=== PATIENT | female | born 1955 | race Caucasian/White ===

== ENCOUNTER 2018-02-21 01:29 | Emergency (ER) | payer OTHER ==
[~2018-02-21] VITALS: Ht 167.6 cm; Wt 65.8 kg
[~2018-02-21 01:29] MED LIST: ASPIRIN EC81 M1; BENAZEPRIL-HCT1 EAC1; BRILINTA90 MG; CIPRO XR 500 M500 MG; CLOPIDOGREL75 MG PO; D-AMPHETAMINE SALT; FLEXERIL PO; HYDROCODON-ACE1 EAC4; HYDROCODON-ACE1 EAC7 PO; LOPRESSOR100 MG; NAPROSYN500 MG PO; NORFLEX100 MG PO; PERCOCET 5-3251 EACH PO; SIMVASTATIN40 MG
[2018-02-21 02:33] VITALS: BP 151/77
== END 2018-02-21 02:34 | disposition home or self-care (01) ==
LOC: M.ERS 01:29
DX: S99.821A Other specified injuries of right foot, initial encounter (principal); I21.9 Acute myocardial infarction, unspecified; Z90.49 Acquired absence of other specified parts of digestive tract; Z90.710 Acquired absence of both cervix and uterus; Z95.5 Presence of coronary angioplasty implant and graft; F17.210 Nicotine dependence, cigarettes, uncomplicated; W18.39XA Other fall on same level, initial encounter; Y93.89 Activity, other specified; Y92.89 Other specified places as the place of occurrence of the external cause; Y99.8 Other external cause status

== ENCOUNTER 2019-11-20 17:26 | Inpatient (IN) | payer OTHER ==
[~2019-11-20] VITALS: Ht 162.6 cm; Wt 81.0 kg
[~2019-11-20 17:26] MED LIST changes: -ASPIRIN EC81 M1; +ASPIRIN EC81 M1 PO; -SIMVASTATIN40 MG; +SIMVASTATIN40 MG PO
[2019-11-20 17:38] VITALS: BP 180/112
[2019-11-20 18:22] LABS: ABSOLUTE BASOPHILS 0.1 thou/uL (0.0-0.2); ABSOLUTE LYMPHOCYTES 2.2 thou/uL (0.8-5.3); ABSOLUTE MONOCYTES 1.3 thou/uL (0.0-1.2); ABSOLUTE NEUTROPHILS 14.3 thou/uL (1.6-8.1); BASOPHILS 0.5 %; EOSINOPHILS 0.1 %; HEMOGLOBIN 13.2 gm/dL (12.0-15.0); LYMPHOCYTES 12.5 %; MCHC 34.6 g/dL (28.0-37.0); MCV 92.5 fL (80.0-100.0); MONOCYTES 7.2 %; NUCLEATED RBCS 0 /100WBC; PLATELET COUNT* 409 thou/uL (150-400); POLYS 79.7 %; RBC 4.11 mil/uL (4.20-5.00); RDW-CV 13.5 % (10.5-14.5); WBC 17.9 thou/uL (4.0-11.0)
[2019-11-20 18:23] LABS: URINE BILIRUBIN NEGATIVE (Negative); URINE BLOOD 1+ (Negative); URINE COLOR YELLOW; URINE GLUCOSE-RANDOM NEGATIVE (Negative); URINE KETONES NEGATIVE (Negative); URINE LEUKOCYTES-REFLEX NEGATIVE (Negative); URINE NITRITE-REFLEX NEGATIVE (Negative); URINE PROTEIN 3+ (Negative); URINE SPECIFIC GRAVITY 1.025 (1.005-1.030); URINE UROBILINOGEN 0.2 E.U./dl (0.2-1.0)
[2019-11-20 18:26] LABS: URINE CLARITY HAZY
[2019-11-20 18:30] LABS: CALCIUM 9.4 mg/dL (8.5-10.1); CREATININE 1.5 mg/dL (0.6-1.3); POTASSIUM 3.6 mmol/L (3.5-5.1)
[2019-11-20 18:35] LABS: ALBUMIN 3.4 g/dL (3.4-5.0); TOTAL BILIRUBIN 0.6 mg/dL (<0.1-1.0); TOTAL PROTEIN 7.9 g/dL (6.4-8.2)
[2019-11-20 18:39] LABS: SQUAMOUS >10 Many /LPF (0-3)
[2019-11-20 18:40] LABS: BACTERIA-REFLEX >30 Many /HPF (None Seen); CASTS None Seen /LPF (None Seen); CRYSTALS None Seen /LPF (None Seen); URINE RBC 0-2 Rare /HPF (0-2); URINE WBC-REFLEX >25 Many /HPF (0-5)
[2019-11-20 21:52] VITALS: BP 167/86
[2019-11-20 21:57] LABS: INFLUENZA A ANTIGEN Negative (Negative); INFLUENZA B ANTIGEN Negative (Negative)
[2019-11-20 22:15] VITALS: BP 176/75
[2019-11-21] VITALS (8 sets, daily range): BP systolic 134–180; BP diastolic 65–87
--- NOTE | 2019-11-21 10:21 | EKG ---
[place] [address] ELECTROCARDIOGRAM REPORT Name: CASTRO CLEANING Room: [address] IN [facility]#: [id number] Admission: 11/20/19 Attend Phys: Pablito Gutierrez, Discharge: Date of : 51 Date of Service: 11/20/19 1819 Report #: [id number] THIS REPORT FOR: //name// [facility] ED Test Date: 2019-11-20 Test Time: 18:19:06 Pat Name: CASTRO CLEANING Department: Room: [facility] Gender: F Hand I Thermal Cutter: JUDE : 1955 Requested By: Costa Flores Order Number: [id number] MD: Bryan Jay Measurements Intervals [place] Rate: 70 P: 76 TN: 157 QRS: 52 QRSD: 93 T: 82 QT: 477 QTc: 515 Interpretive Statements Sinus rhythm Probable left atrial enlargement Borderline T wave abnormalities Prolonged QT interval Baseline wander in lead(s) V6 Compared to ECG 08/30/2012 09:02:43 T-wave abnormality now present Prolonged QT interval now present Electronically Signed On 11-21-2019 10:20:14 CAR BRACER by Bryan Jay [email or web address] <ELECTRONICALLY SIGNED> By: Bryan Jay MD, [facility] 11/21/19 1020 18 18 Bryan Jay MD, [facility] /EPI
[2019-11-21 13:14] LABS: CALCIUM 8.8 mg/dL (8.5-10.1); CREATININE 1.3 mg/dL (0.6-1.3); MAGNESIUM 1.6 mg/dL (1.8-2.4); POTASSIUM 3.6 mmol/L (3.5-5.1)
[2019-11-22 00:30] VITALS: BP 187/88
[2019-11-22 04:41] VITALS: BP 170/74
[2019-11-22 05:17] LABS: CALCIUM 8.7 mg/dL (8.5-10.1); CREATININE 1.2 mg/dL (0.6-1.3); MAGNESIUM 1.4 mg/dL (1.8-2.4); POTASSIUM 3.2 mmol/L (3.5-5.1)
[2019-11-22 12:00] VITALS: BP 185/90
[2019-11-22 16:00] VITALS: BP 171/78
[2019-11-22 20:10] VITALS: BP 167/73
[2019-11-23 00:23] VITALS: BP 145/49
[2019-11-23 04:30] VITALS: BP 160/69
[2019-11-23 05:27] LABS: HEMATOCRIT 32.6 % (37.0-47.0); MCH 31.4 pg (26.0-34.0); MCHC 33.6 g/dL (28.0-37.0); MCV 93.6 fL (80.0-100.0); MPV 7.2 fl. (7.2-11.1); RBC 3.48 mil/uL (4.20-5.00); RDW-CV 13.4 % (10.5-14.5); WBC 11.2 thou/uL (4.0-11.0)
[2019-11-23 05:40] LABS: HEMOGLOBIN 10.9 gm/dL (12.0-15.0)
[2019-11-23 05:57] LABS: CALCIUM 8.3 mg/dL (8.5-10.1); CREATININE 1.3 mg/dL (0.6-1.3); MAGNESIUM 1.7 mg/dL (1.8-2.4); POTASSIUM 3.8 mmol/L (3.5-5.1)
[2019-11-23 08:00] VITALS: BP 159/72
[2019-11-23] MEDS ORDERED: CIPRO500 MG PO (09:31)
[2019-11-23] MEDS ORDERED: PHENERGAN 25 MG25 M1 PO (09:32)
[2019-11-23 11:21] VITALS: BP 185/89
[2019-11-23 16:45] VITALS: BP 190/96
[2019-11-23 19:50] VITALS: BP 175/88
[2019-11-24] VITALS: BP 202/103
[2019-11-24 04:00] VITALS: BP 170/69
[2019-11-24 10:00] VITALS: BP 176/82
[2019-11-24 11:34] VITALS: BP 178/81
[2019-11-24 16:06] VITALS: BP 177/85
[2019-11-24 19:50] VITALS: BP 159/78
[2019-11-25 00:38] VITALS: BP 171/84
[2019-11-25 04:00] VITALS: BP 177/73
[2019-11-25 08:30] VITALS: BP 166/96
[2019-11-25 10:02] LABS: ABSOLUTE EOSINOPHILS 0.1 thou/uL (0.0-0.7); ABSOLUTE MONOCYTES 0.8 thou/uL (0.0-1.2); ABSOLUTE NEUTROPHILS 7.9 thou/uL (1.6-8.1); BASOPHILS 0.1 %; EOSINOPHILS 0.5 %; HEMATOCRIT 36.6 % (37.0-47.0); HEMOGLOBIN 12.7 gm/dL (12.0-15.0); LYMPHOCYTES 18.4 %; MCH 31.9 pg (26.0-34.0); MCHC 34.7 g/dL (28.0-37.0); MCV 91.7 fL (80.0-100.0); MONOCYTES 7.3 %; MPV 7.1 fl. (7.2-11.1); NUCLEATED RBCS 0 /100WBC; PLATELET COUNT* 372 thou/uL (150-400); POLYS 73.7 %; RBC 3.99 mil/uL (4.20-5.00); RDW-CV 13.4 % (10.5-14.5); WBC 10.8 thou/uL (4.0-11.0)
[2019-11-25 10:14] LABS: ALBUMIN 2.9 g/dL (3.4-5.0); CALCIUM 8.6 mg/dL (8.5-10.1); CREATININE 1.4 mg/dL (0.6-1.3); POTASSIUM 3.8 mmol/L (3.5-5.1); TOTAL BILIRUBIN 0.6 mg/dL (<0.1-1.0); TOTAL PROTEIN 6.8 g/dL (6.4-8.2)
[2019-11-25 12:09] VITALS: BP 123/75
[2019-11-25 13:45] VITALS: BP 123/75
== END 2019-11-25 15:20 | disposition home or self-care (01) | DRG 689 ==
LOC: M.ERS 17:26 → M.2W 21:23 → M.TBA-ER 21:23 → M.2W 22:05
PROVIDERS: Internal Medicine; Physician Assistant; ADMIT Internal Medicine
DX: N30.91 Cystitis, unspecified with hematuria (principal); N17.0 Acute kidney failure with tubular necrosis; R65.10 Systemic inflammatory response syndrome (SIRS) of non-infectious origin without acute organ dysfunction; F11.20 Opioid dependence, uncomplicated; I16.1 Hypertensive emergency; A08.4 Viral intestinal infection, unspecified; E86.9 Volume depletion, unspecified; K57.90 Diverticulosis of intestine, part unspecified, without perforation or abscess without bleeding; B96.89 Other specified bacterial agents as the cause of diseases classified elsewhere; G89.29 Other chronic pain; I25.10 Atherosclerotic heart disease of native coronary artery without angina pectoris; Z90.49 Acquired absence of other specified parts of digestive tract; Z90.710 Acquired absence of both cervix and uterus; I25.2 Old myocardial infarction; Z95.5 Presence of coronary angioplasty implant and graft; Z79.899 Other long term (current) drug therapy; Z79.82 Long term (current) use of aspirin; Z87.891 Personal history of nicotine dependence; Z86.010 Personal history of colon polyps

== ENCOUNTER 2021-02-04 15:47 | Inpatient (IN) | payer OTHER ==
[~2021-02-04] VITALS: Ht 165.1 cm; Wt 79.5 kg
[~2021-02-04 15:47] MED LIST changes: +CIPRO500 MG PO; -HYDROCODON-ACE1 EAC4; +HYDROCODON-ACE1 EAC5 PO; +PHENERGAN 25 MG25 M1 PO
[2021-02-04 15:55] VITALS: BP 161/93
[2021-02-04] MEDS ORDERED: MEDROLDOSEPACK PO (16:00)
[2021-02-04 16:51] LABS: ABSOLUTE BASOPHILS 0.1 thou/uL (0.0-0.2); ABSOLUTE EOSINOPHILS 0.1 thou/uL (0.0-0.7); ABSOLUTE LYMPHOCYTES 4.2 thou/uL (0.8-5.3); ABSOLUTE MONOCYTES 1.4 thou/uL (0.0-1.2); ABSOLUTE NEUTROPHILS 8.5 thou/uL (1.6-8.1); BASOPHILS 0.5 %; EOSINOPHILS 0.8 %; HEMATOCRIT 32.1 % (37.0-47.0); HEMOGLOBIN 11.1 gm/dL (12.0-15.0); LYMPHOCYTES 29.4 %; MCH 32.4 pg (26.0-34.0); MCHC 34.7 g/dL (28.0-37.0); MCV 93.3 fL (80.0-100.0); MONOCYTES 9.9 %; MPV 6.9 fl. (7.2-11.1); NUCLEATED RBCS 0 /100WBC; PLATELET COUNT* 396 thou/uL (150-400); POLYS 59.4 %; RBC 3.44 mil/uL (4.20-5.00); RDW-CV 12.7 % (10.5-14.5); WBC 14.3 thou/uL (4.0-11.0)
[2021-02-04 16:59] LABS: CALCIUM 9.2 mg/dL (8.5-10.1); CREATININE 2.2 mg/dL (0.6-1.3); POTASSIUM 3.8 mmol/L (3.5-5.1)
[2021-02-04 17:09] LABS: ALBUMIN 3.2 g/dL (3.4-5.0); TOTAL BILIRUBIN 0.3 mg/dL (<0.1-1.0); TOTAL PROTEIN 7.1 g/dL (6.4-8.2)
[2021-02-04 17:56] LABS: URINE BILIRUBIN NEGATIVE (Negative); URINE BLOOD NEGATIVE (Negative); URINE CLARITY CLEAR; URINE COLOR YELLOW; URINE GLUCOSE-RANDOM NEGATIVE (Negative); URINE KETONES NEGATIVE (Negative); URINE LEUKOCYTES-REFLEX NEGATIVE (Negative); URINE NITRITE-REFLEX NEGATIVE (Negative); URINE PROTEIN 2+ (Negative); URINE SPECIFIC GRAVITY 1.025 (1.005-1.030); URINE UROBILINOGEN 0.2 E.U./dl (0.2-1.0)
[2021-02-04 18:10] LABS: CRYSTALS None Seen /LPF (None Seen); HYALINE CASTS 0-3 Few /LPF (None Seen); SQUAMOUS >10 Many /LPF (0-3)
[2021-02-04 18:11] LABS: MUCUS 0-3 Light strn/LPF (None Seen)
[2021-02-04 18:13] LABS: BACTERIA-REFLEX 1-9 Few /HPF (None Seen); URINE RBC None Seen /HPF (0-2); URINE WBC-REFLEX 0-5 Rare /HPF (0-5)
[2021-02-04 20:30] VITALS: BP 137/56
[2021-02-04 21:09] VITALS: BP 144/70
[2021-02-05] VITALS (7 sets, daily range): BP systolic 150–220; BP diastolic 73–87
[2021-02-05 09:46] LABS: ABSOLUTE LYMPHOCYTES 2.6 thou/uL (0.8-5.3); ABSOLUTE MONOCYTES 0.9 thou/uL (0.0-1.2); ABSOLUTE NEUTROPHILS 9.4 thou/uL (1.6-8.1); BASOPHILS 0.4 %; EOSINOPHILS 0.2 %; HEMATOCRIT 31.4 % (37.0-47.0); HEMOGLOBIN 10.5 gm/dL (12.0-15.0); LYMPHOCYTES 20.2 %; MCH 31.1 pg (26.0-34.0); MCHC 33.5 g/dL (28.0-37.0); MCV 92.9 fL (80.0-100.0); MONOCYTES 6.8 %; MPV 6.5 fl. (7.2-11.1); NUCLEATED RBCS 0 /100WBC; PLATELET COUNT* 365 thou/uL (150-400); POLYS 72.4 %; RBC 3.38 mil/uL (4.20-5.00); RDW-CV 12.7 % (10.5-14.5)
[2021-02-05 09:58] LABS: ALBUMIN 2.8 g/dL (3.4-5.0); CALCIUM 8.6 mg/dL (8.5-10.1); CREATININE 1.9 mg/dL (0.6-1.3); POTASSIUM 4.7 mmol/L (3.5-5.1); TOTAL BILIRUBIN 0.3 mg/dL (<0.1-1.0); TOTAL PROTEIN 6.5 g/dL (6.4-8.2)
--- NOTE | 2021-02-06 15:19 | EKG ---
[place] [address] ELECTROCARDIOGRAM REPORT Name: FELIPE CLEANINGAN Wilfredo Room: [address] IN [facility]#: [id number] Admission: 02/04/21 Attend Phys: Jodie Plasencia, Discharge: 02/05/21 Date of : 51 Date of Service: 02/04/21 1553 Report #: [id number] THIS REPORT FOR: //name// [facility] ED Test Date: 2021-02-04 Test Time: 15:53:00 Pat Name: CASTRO CLEANING Department: Room: [facility] Gender: F Rockboard Lather: GAUTAM : 1955 Requested By: Johanne Locke Order Number: [id number] MD: Bryan Jay Measurements Intervals [place] Rate: 64 P: 75 [place]: 172 QRS: 42 QRSD: 97 T: 62 QT: 474 QTc: 489 Interpretive Statements Sinus rhythm Left atrial enlargement Nonspecific T abnormalities, lateral leads Borderline prolonged QT interval Compared to ECG 11/20/2019 18:19:06 No significant changes Electronically Signed On 02-06-2021 15:18:56 CDT by Bryan Jay [email or web address] <ELECTRONICALLY SIGNED> By: Bryan Jay MD, [facility] 02/06/21 1518 1553 1553 Bryan Jay MD, FAC /EPI
== END 2021-02-05 14:15 | disposition home or self-care (01) | DRG 303 ==
LOC: M.ERS 15:47 → M.TBA-ER 17:54 → M.2W 20:30
PROVIDERS: Internal Medicine; Nurse Practitioner Family; ADMIT Internal Medicine; ATTEND Internal Medicine
DX: I25.119 Atherosclerotic heart disease of native coronary artery with unspecified angina pectoris (principal); N18.4 Chronic kidney disease, stage 4 (severe); N17.9 Acute kidney failure, unspecified; K57.90 Diverticulosis of intestine, part unspecified, without perforation or abscess without bleeding; F12.90 Cannabis use, unspecified, uncomplicated; D64.9 Anemia, unspecified; G89.29 Other chronic pain; Z20.822 Contact with and (suspected) exposure to COVID-19; I25.2 Old myocardial infarction; Z95.5 Presence of coronary angioplasty implant and graft; Z90.710 Acquired absence of both cervix and uterus; Z90.49 Acquired absence of other specified parts of digestive tract; Z79.82 Long term (current) use of aspirin; Z79.899 Other long term (current) drug therapy

== ENCOUNTER → 2021-02-13 | Outpatient (CLI) | payer OTHER ==
[~2021-02-13] MED LIST changes: +ATORVASTATIN CA20 MG PO; +BENAZEPRIL 10 M10 MG PO; +EFFIENT10 MG PO; +IMDUR 30 MG TAB30 M1 PO; +LOPRESSOR100 M1 PO; +LOTENSIN HCT 11 EAC1 PO; +MEDROLDOSEPACK PO; +NITROSTAT0.4 M1 SUBLING
--- NOTE | 2021-02-13 16:43 | CARDNUC ---
[place] [address] CARDIAC NUCLEAR IMAGING REPORT Name: CASTRO CLEANING Room: [facility]#: [id number] Admission: 02/13/21 Attend Phys: Santosh Valdez, Discharge: Date of : 51 Date of Service: 02/13/21 1643 Report #: [id number] THIS REPORT FOR: cc: Chandler Patterson MD, Bruce D. MD Park, Jin S. MD ~ APPROVED REPORT Imaging Protocol: Rest Tc-99m/Stress Tc-99m 1 day Study performed: 02/13/2021 14:29:21 Indication: Chest pressure with nausea, dyspnea, lightheadedness/dizziness. Patient Location: Out-Patient Stress Tech: Tere Hall Stress Nurse: Martha Springer Tech:MONE Del Angel Ht: 5 ft 5 in Wt: 170 lbs BSA: 1.85 m2 BMI: 28.28 Medical History Medical History: Chest pressure with nausea, lightheadedness/dizziness, dyspnea, chronic narcotic medication use, CAD s/p NE, CAD s/p stent, ARF, ATN, hypertensive urgency, falls, HX closed head injury, HTN, Hyperlipidemia, smokes tobacco and marijuana, right ankle injury, bilateral hip and knee pain, FHX CAD. Medications: ASA 81 mg, Benazepril-HCTZ, Metoprolol tartrate, Simvastatin. Allergies: No known drug allergies Cardiac Risk Factors: Age, Current Smoker, FHX of CAD, HTN, Hyperlipidemia, SOB, ARF, HX hypertensive urgency. Previous Cardiac Procedures: Myocardial infarction, PCI. Pretest Chest Pain Characteristics: No chest pain Exercise History: Sedentary Physical Disabilities: right ankle injury with pain, bilateral hip and knee pain, HX closed head injury, unstable gait, fall history. Meds Held (24 hrs): Metoprolol tartrate, Benazepril-HCTZ, ASA 81 mg. Resting Data Rest SPECT myocardial perfusion imaging [place] [address] CARDIAC NUCLEAR IMAGING REPORT Name: CASTRO CLEANING Room: [facility]#: [id number] Admission: 02/13/21 Attend Phys: Santosh Valdez, Discharge: Date of : 51 Date of Service: 02/13/21 1643 Report #: [id number] position 30 minutes following the intravenous injection of 9.6 mCi of Tc-99m Sestamibi. Time of rest injection: 1320 Date: 02/13/2021 The images were gated to evaluate regional wall motion and calculate left ventricular ejection fraction. Administration Route: IV Administration Site: Right Arm Pharmacologic Stress Pharmacologic stress test was performed by injecting Regadenoson 0.4 mg IV push over 10-15 seconds immediately followed by the intravenous injection of 35.2 mCi of Tc-99m Sestamibi. Time of stress injection: 1440 Date: 02/13/2021 Administration Route: IV Administration Site: Right Arm Gated Stress SPECT was performed 40 minutes after stress injection. The images were gated to evaluate regional wall motion and calculate left ventricular ejection fraction. Stress only was performed in the Supine position. Stress Test Details Stress Test: Pharmacologic stress testing performed using 0.4 mg of regadenoson per 5 mL given IV over 10 seconds. Reason for pharmacologic stress test: right ankle injury with pain, bilateral hip and knee pain, HX closed head injury, unstable gait, fall history.. HR Max Heart Rate (APMHR): 153 bpm Resting HR: 78 bpm Target HR (85% APMHR): 130 bpm Max HR Achieved: 106 bpm % of APMHR: 69 Recovery HR: 96 bpm BP Resting BP: 189/106 mmHg Max BP: 165/81 mmHg Recovery BP: 176/86 mmHg ECG Resting ECG: Sinus Rhythm, nonspecific ST-T abnormalities Stress ECG: Sinus Rhythm, nonspecific ST-T abnormalities ST Change: Non-ischemic Clinical Reason for Termination: [place] [address] CARDIAC NUCLEAR IMAGING REPORT Name: CASTRO CLEANING Room: [facility]#: [id number] Admission: 02/13/21 Attend Phys: Santosh Valdez, Discharge: Date of : 51 Date of Service: 02/13/21 1643 Report #: [id number] Stress Symptoms: Dyspnea, nausea, headache. Exercise duration: 00 min 00 sec Exercise capacity: 1.00 METs Nurse Comments A 65 year old female presented for a sitting Lexiscan. Test tolerated. Recovery unremarkable. Patient was stable and stated she felt better when escorted via wheelchair to Nuclear Medicine for imaging. While patient was waiting for Nuc Med imaging, she experienced N/V. This nurse, per Dr. Garcia orders, pushed 4 mg IV Zofran to help with nausea , provided wet wash cloth to forehead and ice chips to chew on for hydration. Patient stated she felt better. Study Quality Study: Good Study Data Post stress, the left ventricular ejection was 57%.. SSS: 12 SRS: 10 SDS: 1 TID = 1.05. Perfusion There is a medium area of moderately reduced uptake in the mid and apical segment of the anteroseptal wall which is seen on the stress images and improves on the resting images. This area thickens and is most consistent with mixed infarct and ischemia. Wall Motion Mildly decreased left ventricular systolic function. Nuclear Conclusion ECG Findings: negative for ischemia Clinical Findings: non-diagnostic Nuclear Findings: positive for mixed infarct and ischemia Exercise Capacity: not assessed Left Ventricular Function: abnormal This study reveals a nontransmural infarct in the mid to apical anteroseptum with mild maya-infarct ischemia. [address] [address] CARDIAC NUCLEAR IMAGING REPORT Name: CASTRO CLEANING Room: [facility]#: [id number] Admission: 02/13/21 Attend Phys: Santosh Valdez, Discharge: Date of : 51 Date of Service: 02/13/21 1643 Report #: [id number] There is low normal LV systolic function with hypokinesis of the distal inferoapical segment. <ELECTRONICALLY SIGNED> By: Terrence Hernández MD 02/13/211642 42 42 Terrence Hernández MD /INF
== END ==
LOC: M.NUC 12:40
PROVIDERS: ATTEND Internal Medicine Cardiovascular Disease
DX: I21.4 Non-ST elevation (NSTEMI) myocardial infarction (principal); R06.00 Dyspnea, unspecified; R51.9 Headache, unspecified; R11.0 Nausea; I25.118 Atherosclerotic heart disease of native coronary artery with other forms of angina pectoris; I25.2 Old myocardial infarction; I10 Essential (primary) hypertension; E78.5 Hyperlipidemia, unspecified; F17.200 Nicotine dependence, unspecified, uncomplicated; Z95.5 Presence of coronary angioplasty implant and graft; Z79.899 Other long term (current) drug therapy

== ENCOUNTER 2021-03-08 10:25 | Observation (INO) | payer OTHER ==
[~2021-03-08] VITALS: Ht 165.1 cm; Wt 77.1 kg
[2021-03-08] VITALS (8 sets, daily range): BP systolic 130–140; BP diastolic 67–84
--- NOTE | ~2021-03-08 | H ---
[address] [address] HISTORY AND PHYSICAL Name: BLACKCASTRO Wilfredo Room: [address] Suzie MMistyRMisty#: [id number] Admission: 03/08/21 Attend Phys: Bryan Jay MD, Discharge: 03/09/21 Date of : 51 Report #: [id number] THIS REPORT FOR: cc: Chandler Patterson MD, Bruce D. MD [facility],Medical Records Staff ~ Please refer to the History and Physical performed in the physician's office. By: 1005Medical Records Staff [facility] /ISAAK
[~2021-03-08 10:25] MED LIST changes: -ATORVASTATIN CA20 MG PO; -EFFIENT10 MG PO
[2021-03-08 11:16] LABS: HEMATOCRIT 31.7 % (37.0-47.0); HEMOGLOBIN 10.9 gm/dL (12.0-15.0); MCH 31.6 pg (26.0-34.0); MCHC 34.5 g/dL (28.0-37.0); MCV 91.5 fL (80.0-100.0); MPV 7.3 fl. (7.2-11.1); RBC 3.47 mil/uL (4.20-5.00); RDW-CV 12.4 % (10.5-14.5); WBC 12.7 thou/uL (4.0-11.0)
[2021-03-08 11:24] LABS: ANION GAP 8 mmol/L (7-16); BUN 52 mg/dL (7-18); CALCIUM 8.9 mg/dL (8.5-10.1); CHLORIDE 99 mmol/L (98-107); CO2 26 mmol/L (21-32); CREATININE 2.3 mg/dL (0.6-1.3); GLUCOSE 98 mg/dL (70-99); POTASSIUM 4.7 mmol/L (3.5-5.1); SODIUM 133 mmol/L (136-145)
[2021-03-08 11:30] LABS: ALBUMIN 3.2 g/dL (3.4-5.0); ALKALINE PHOSPHATASE 179 U/L (46-116); CHOLESTEROL 174 mg/dL (<200); HDL CHOLESTEROL 40 mg/dL (>40); LDL CHOLESTEROL 92 mg/dL (<100); SGOT 20 U/L (15-37); SGPT 11 U/L (30-65); TC:HDL 4.4 Ratio (Not establshd); TOTAL BILIRUBIN 0.1 mg/dL (<0.1-1.0); TOTAL PROTEIN 7.4 g/dL (6.4-8.2); TRIGLYCERIDE 213 mg/dL (<150); VLDL 43 mg/dL (<40)
[2021-03-08 11:31] LABS: SERUM ASSESSMENT Clear
[2021-03-08 11:41] LABS: APTT 26.6 Seconds (25.0-31.3); INR 0.9; PROTIME 9.6 Seconds (9.20-11.50)
--- NOTE | 2021-03-08 14:20 | EKG ---
[place] [address] ELECTROCARDIOGRAM REPORT Name: CASTRO CLEANING Room: [address] M.R.#: [id number] Admission: 03/08/21 Attend Phys: Lidia Loza Discharge: Date of : 51 Date of Service: 03/08/21 1109 Report #: [id number] THIS REPORT FOR: //name// [facility] Test Date: 2021-03-08 Test Time: 11:09:35 Pat Name: CASTRO CLEANING Department: Room: [facility] Gender: F Asphalt Raker: ARLYN : 1955 Requested By: Bryan Jay Order Number: [id number] Reading MD: Bryan Jay Measurements Intervals [place] Rate: 60 P: 83 MA: 189 QRS: 18 QRSD: 98 T: 97 QT: 462 QTc: 462 Interpretive Statements Sinus rhythm Nonspecific T abnrm, anterolateral leads Minimal ST elevation, anterior leads Compared to ECG 02/04/2021 15:53:00 ST (T wave) deviation now present Atrial abnormality no longer present T-wave abnormality no longer present Electronically Signed On 03-08-2021 14:20:20 CDT by Bryan Jay [email or web address] <ELECTRONICALLY SIGNED> By: Bryan Jay MD, [facility] 03/08/21 1420 1109 1109 Bryan Jay MD, [facility] /EPI
--- NOTE | 2021-03-08 14:21 | EKG ---
[place] [address] ELECTROCARDIOGRAM REPORT Name: CASTRO CLEANING Room: [address] M.R.#: [id number] Admission: 03/08/21 Attend Phys: Lidia Loza Discharge: Date of : 51 Date of Service: 03/08/21 1414 Report #: [id number] THIS REPORT FOR: //name// [facility] Test Date: 2021-03-08 Test Time: 14:14:17 Pat Name: CASTRO CLEANING Department: Room: [place] [address] Gender: F Gas Tester: : 1955 Requested By: Bryan Jay Order Number: [id number] Reading MD: Bryan Jay Measurements Intervals [place] Rate: 59 P: 88 [place]: 188 QRS: 33 QRSD: 105 T: 87 QT: 469 QTc: 465 Interpretive Statements Sinus rhythm Nonspecific T abnormalities, lateral leads Minimal ST elevation, anterior leads Compared to ECG 03/08/2021 11:09:35 T-wave abnormality now present ST (T wave) deviation still present Electronically Signed On 03-08-2021 14:20:55 CDT by Bryan Jay [email or web address] <ELECTRONICALLY SIGNED> By: Bryan Jay MD, [facility] 03/08/21 1420 1414 1414 Bryan Jay MD, [facility] /EPI
--- NOTE | 2021-03-08 16:08 | CARD ---
[address] [address] CARDIAC CATH REPORT Name: CASTRO CLEANING Room: [address] M.R.#: [id number] Admission: 03/08/21 Attend Phys: Bryan Jay MD, Discharge: Date of : 51 Report #: [id number] THIS REPORT FOR: cc: Chandler Patterson MD, Bruce D. MD Holkins,Bryan Deutsch MD [facility] ~ APPROVED REPORT Study performed: 03/08/2021 11:46:48 Patient Details Patient Status: Out-Patient Room #: The patient is a 65 year-old female Event Personnel Bryan Jay Corporate Planner, Noreen Nicholas RN Voice Systems Engineer, Vanessa Blas RTR Scrub, Rosa Noble RTR Monitor Procedures Performed Art Access - R femoral artery , Left Heart Cath w/or w/o Coronaries LHC , MATHIEU w/Atherectomy Single LAD DESATH , MATHIEU Place w/wo Plasty Single Left Main , Hemostasis w/ Angioseal Indication Unstable angina Risk Factors Hypercholesterolemia, Hypertension Previous Procedures/Diagnoses Previous PCI Admission/Lab Medications/Medications given during procedure Angiomax IV 12 ml, Angiomax Drip IV 15.46 ml per hr (renal dose), Angiomax IV 4 ml, Effient PO 60 mg, Aspirin PO 162 mg Procedure Narrative The patient was brought electively to the Cardiac Catheterization Laboratory and was prepped and draped in a sterile manner. The right femoral was infiltrated with 2% Lidocaine subcutaneous anesthesia. IV conscious sedation was used throughout procedure with appropriate monitoring and was performed in the presence of a registered nurse who was an independent trained observer other than the physician performing the procedure. A 6F Ultimum sheath [place] [address] CARDIAC CATH REPORT Name: CASTRO CLEANING Wilfredo Room: [address]#: [id number] Admission: 03/08/21 Attend Phys: Bryan Jay MD, Discharge: Date of : 51 Report #: [id number] right femoral artery. Coronary angiography was performed using coronary diagnostic catheters. The right coronary system was accessed and visualized with a 6F JR4 catheter. The left coronary system was accessed and visualized with a 6F JL4 catheter. The left ventricle was accessed and visualized with a 6F Pigtail catheter. Left ventricular/Aortic Valve gradient assessed via catheter pullback. Pre-demployment femoral angiogram was performed . Closure device was deployed with a 6 Fr Angioseal STS. The patient tolerated the procedure well and there were no complications associated with the procedure. There was no hematoma. Intraoperative Conscious Sedation Sedation start time: 12:19 Case end Time: 13:35 Fentanyl 75 mcg Versed 4 mg Fluoro Time: 22.2 minutes Dose: DAP 899505 cGycm2 1897 mGy Contrast Type and Amount: Visipaque 150 ml Diagnostic Cath Left Main 70% distal narrowing LAD 90% proximal stenosis with 75% tubular mid vessel in-stent restenosis Circumflex 30% proximal narrowing Right Coronary 80 percent clefted proximal stenosis with 75% mid vessel in-stent restenosis and 40% distal narrowing Left Ventriculography Left Ventriculography was not performed. Hemodynamics The aortic pressure is 143/70 mmHg with a mean of 96 mmHg. The left ventricular pressure is 144/0 mmHg with a mean of mmHg. The left ventricular end diastolic pressure is 5 mmHg. PCI Technique Lesion Anticoagulation was achieved with Angiomax. Patient was preloaded with Angiomax IV 12 ml. Percutaneous coronary intervention was performed on the Mid LAD. The lesion stenosis prior to intervention was 75% with ASUNCION 3 flow. A 6F XB LAD 3.5 Guide Catheter was used to engage the ostium. A ProwaterFlex 180CM Interventional Guidewire was used to cross the lesion[place] [address] CARDIAC CATH REPORT Name: CASTRO CLEANING Room: [address]#: [id number] Admission: 03/08/21 Attend Phys: Bryan Jay MD, Discharge: Date of : 51 Report #: [id number] A Balloon catheter NC Trek RX 2.5 X 12 was inserted and inflated up to 18.00atm for 16seconds. Additional Inflation: 20.00atm for 12seconds. Additional Inflation: 20.00atm for 10seconds. A 2.5 x 10 AngioSculpt scoring balloon was inserted and inflated up to 12 elvia for 13 seconds; 14 elvia for 13 seconds; 20 elvia for 20 seconds; 22 elvia for 23 seconds. A 3.0 x 10 AngioSculpt scoring balloon was inserted and inflated up to 14 eliva for 32 seconds; 17 elvia for 20 seconds; 18 elvia for 15 seconds; 19 elvia for 16 seconds. STENT DEPLOYMENT A drug-eluting stent Mason RX Stent 2.29c92fz was inserted and inflated up to 14.00atm for 17seconds. Additional Inflation: 17.00atm for 11seconds. Final angiography reveals 10 % stenosis with ASUNCION 3 flow. COMMENTS A BMW 190 cm Interventional guide wire was inserted into the circumflex coronary artery PCI Technique Lesion 2 Percutaneous coronary intervention was performed on the left main coronary artery and proximal left anterior descending artery. The lesion stenosis prior to intervention was 90% with ASUNCION 3 flow. Balloon Dilation A Balloon catheter NC Trek RX 2.5 X 12 was inserted and inflated up to 16atm for 10seconds. Stent Deployment A drug-eluting stent Mason RX Stent 3.0X26mm was inserted and inflated up to 12atm for 15seconds. Additional Inflation: 15atm for 8seconds. Additional Inflation: 18atm for 10seconds. Final angiography reveals 0 % stenosis with ASUNCION 3 flow. Conclusion 1. Severe coronary artery disease characterized by the following: A 70% distal left main coronary narrowing B 90% ostial proximal LAD stenosis with 75% tubular mid LAD [place] [address] CARDIAC CATH REPORT Name: CASTRO CLEANING Room: [address] GetRMisty#: [id number] Admission: 03/08/21 Attend Phys: Bryan Jay MD, Discharge: Date of : 51 Report #: [id number] C 30% proximalmid circumflex narrowing D 80% clefted proximal right coronary stenosis with 75% mid vessel in-stent restenosis and 40% distal narrowing 2. Normal left-sided hemodynamic study 3. Successful atherotomy/atherectomy with stenting of the mid LAD with 10% residual narrowing 4. Successful PCI with deployment of drug-eluting stent at the site of 70% distal left main and 90% proximal LAD stenosis with 0% residual narrowing and ASUNCION-3 flow to the distal vessel Recommendations Cardiac Risk Reduction Program Aggressive Medical Therapy Medications Administered Aspirin (any) Prasugrel Diagnostic Cath Approved by: Bryan Jay MD Date/Time: 03/08/2021 16:04:17 <ELECTRONICALLY SIGNED> By: Bryan Jay MD, [facility] 03/08/21 1607 1607 [id number] Jay MD, [facility]ACC /INF
[2021-03-09] VITALS: BP 143/70
[2021-03-09 04:00] VITALS: BP 162/85
[2021-03-09 07:40] VITALS: BP 160/86
[2021-03-09 08:03] LABS: HEMATOCRIT 33.9 % (37.0-47.0); HEMOGLOBIN 11.9 gm/dL (12.0-15.0); MCH 32.1 pg (26.0-34.0); MCHC 35.2 g/dL (28.0-37.0); MCV 91.3 fL (80.0-100.0); RBC 3.71 mil/uL (4.20-5.00); RDW-CV 12.6 % (10.5-14.5); WBC 12.1 thou/uL (4.0-11.0)
[2021-03-09 08:18] LABS: ALBUMIN 3.1 g/dL (3.4-5.0); CALCIUM 8.9 mg/dL (8.5-10.1); CREATININE 1.9 mg/dL (0.6-1.3); POTASSIUM 4.5 mmol/L (3.5-5.1); TOTAL BILIRUBIN 0.4 mg/dL (<0.1-1.0); TOTAL PROTEIN 7.1 g/dL (6.4-8.2)
[2021-03-09 08:19] LABS: TROPONIN-I LEVEL 1.85 ng/mL (<0.06)
[2021-03-09] MEDS ORDERED: EFFIENT10 MG PO (09:07)
[2021-03-09] MEDS ORDERED: ATORVASTATIN CA20 MG PO (09:28)
[2021-03-09 10:38] VITALS: BP 160/86
[2021-03-09 11:26] VITALS: BP 130/67
[2021-03-09 13:02] VITALS: BP 160/86
--- NOTE | 2021-03-09 16:33 | EKG ---
[place] [address] ELECTROCARDIOGRAM REPORT Name: CASTRO CLEANING Room: [address] M.#: [id number] Admission: 03/08/21 Attend Phys: Lidia Loza Discharge: 03/09/21 Date of : 51 Date of Service: 03/09/21 0843 Report #: [id number] THIS REPORT FOR: //name// [facility] Test Date: 2021-03-09 Test Time: 08:43:43 Pat Name: CASTRO CLEANING Department: Room: [facility] Gender: F Designated Broker: : 1955 Requested By: Bryan Jay Order Number: [id number] Reading MD: Bryan Jay Measurements Intervals [place] Rate: 68 P: 70 [place]: 175 QRS: 22 QRSD: 91 T: 161 QT: 399 QTc: 425 Interpretive Statements Sinus rhythm Consider left atrial enlargement Abnormal T, consider ischemia, lateral leads Compared to ECG 03/08/2021 14:14:17 Possible ischemia now present ST (T wave) deviation no longer present T-wave abnormality still present Electronically Signed On 03-09-2021 16:33:11 CDT by Bryan Jay [email or web address] <ELECTRONICALLY SIGNED> By: Bryan Jay MD, [facility] 03/09/21 1633 0843 0843 Bryan Jay MD, [facility] /EPI
--- NOTE | 2021-03-11 11:11 | D ---
[address] [address] DISCHARGE SUMMARY Name: CASTRO CLEANING Room: [address] Suzie Lehman#: [id number] Admission: 03/08/21 Attend Phys: Bryan Jay MD, Discharge: 03/09/21 Date of : 51 Report #: [id number] THIS REPORT FOR: cc: Chandler Patterson MD, Bruce D. MD Holkins, John M. MD [facility] ~ DOC #: [id number] cc: JAKE Thomas-C Bryan Jay MD [facility] DATE OF DISCHARGE: 03/09/2021 FINAL DISCHARGE DIAGNOSES: 1. Unstable angina. 2. Complex coronary artery disease. 3. Hypertension. 4. Hyperlipidemia. 5. Chronic kidney disease stage III. 6. Status post PCI to the left main and proximal and mid LAD. PROCEDURES: 03/08/2021 -- left heart catheterization, selective coronary arteriography, percutaneous coronary intervention with deployment of drug-eluting stent in the mid LAD after atherectomy and deployment of drug-eluting stent in the left main and proximal LAD. HOSPITAL COURSE: The patient is a very pleasant 65-year-old female with hypertension, hyperlipidemia, coronary artery disease and moderate renal insufficiency. In this context, she developed chest discomfort while working in the garden and the symptoms were progressive. She was seen by my nurse practitioner and felt the pattern was compatible with unstable angina. She had an abnormal nuclear stress test with anteroapical ischemia. In this context, cardiac catheterization was performed on 03/08/2021, which revealed significant multivessel disease characterized by 70% distal left main coronary narrowing with 90% proximal LAD narrowing and 75% tubular mid LAD in-stent restenosis. There was 80% collected proximal right coronary artery narrowing with 75% midvessel narrowing and 40% distal narrowing. There was mild narrowing of the nondominant circumflex. Given this data, I performed an arthrotomy/atherectomy with deployment of a 2.75 x 30 mm Mason drug-eluting stent in the mid LAD and a 3.0 x 26 Mason drug-eluting stent in the distal left main and proximal LAD with 0 and 10% residual narrowings in the left main, LAD and mid [place] [address] DISCHARGE SUMMARY Name: CASTRO CLEANING Room: [address] Suzie Lehman#: [id number] Admission: 03/08/21 Attend Phys: Bryan Jay MD, Discharge: 03/09/21 Date of : 51 Report #: [id number] Troponin naren minimally to 1.85. She had no chest pain post-procedurally. The patient ambulated in the hallways without difficulty. LABORATORY DATA: On 03/09/2021 revealed sodium 137, potassium 4.5, BUN 44 down from 52 preoperatively and creatinine 1.9 down from 2.3 procedurally and glucose 111 mg percent. Hemoglobin 11.9 with white blood cell count of 12,100 and 263,000 platelets. Cholesterol was 174 with triglycerides of 213, HDL 40 and LDL of 92 mg percent. There was good hemostasis at the right femoral site of catheterization. DISCHARGE MEDICATIONS: The patient was discharged to home on prasugrel or Effient 10 mg daily, atorvastatin 20 mg daily, hydrocodone/acetaminophen 10/325 one tablet every 6 hours p.r.n. for pain, enteric-coated aspirin 81 mg daily, metoprolol tartrate 100 mg b.i.d., p.r.n. sublingual nitroglycerin, benazepril 10 mg daily and Imdur 30 mg daily. DISCHARGE INSTRUCTIONS: The patient is scheduled to see my nurse practitioner on 03/17/2021 and we will tentatively plan to proceed with a staged intervention of the right coronary artery in 2 weeks. Therefore, the patient is discharged home in stable condition on the aforementioned medications with followup as described above. Bryan Jay MD [facility] JMH/JAT <ELECTRONICALLY SIGNED> By: Bryan Jay MD, [facility] 03/11/21 1111 0854 [id number] Jay MD, [facility] /nt
== END 2021-03-09 12:50 | disposition home or self-care (01) ==
LOC: M.CL 10:25 → M.TBA-CV 13:11 → M.2W 15:49
PROVIDERS: ADMIT Internal Medicine; ATTEND Internal Medicine
DX: I25.110 Atherosclerotic heart disease of native coronary artery with unstable angina pectoris (principal); I12.9 Hypertensive chronic kidney disease with stage 1 through stage 4 chronic kidney disease, or unspecified chronic kidney disease; N18.30 Chronic kidney disease, stage 3 unspecified; E78.5 Hyperlipidemia, unspecified; Z79.82 Long term (current) use of aspirin; Z79.899 Other long term (current) drug therapy

== ENCOUNTER → 2021-03-17 | Outpatient (CLI) | payer OTHER ==
[~2021-03-17] MED LIST changes: +ATORVASTATIN CA20 MG PO; +EFFIENT10 MG PO
[2021-03-17 11:40] LABS: CALCIUM 8.8 mg/dL (8.5-10.1); CREATININE 2.5 mg/dL (0.6-1.3); POTASSIUM 5.6 mmol/L (3.5-5.1)
== END ==
LOC: M.LAB 11:03
PROVIDERS: ATTEND Internal Medicine
DX: I25.10 Atherosclerotic heart disease of native coronary artery without angina pectoris (principal)

== ENCOUNTER 2021-03-21 08:23 | Observation (INO) | payer OTHER ==
[~2021-03-21] VITALS: Ht 165.1 cm; Wt 83.9 kg
[2021-03-21] VITALS (19 sets, daily range): BP systolic 128–166; BP diastolic 58–91
--- NOTE | ~2021-03-21 | PROC ---
[address] [address] PROCEDURE REPORT Name: BLACKCASTRO Wilfredo Room: [address] Suzie Lehman#: [id number] Admission: 03/21/21 Attend Phys: Bryan Jay MD, Discharge: 03/22/21 Date of : 51 Report #: [id number] THIS REPORT FOR: cc: Chandler Patterson MD, Bruce D. MD [facility],Medical Records Staff ~ Please refer to the History and Physical performed in the physician's office. By: [id number] Records Staff [facility] /ISAAK
[2021-03-21 08:56] LABS: HEMATOCRIT 30.2 % (37.0-47.0); HEMOGLOBIN 10.4 gm/dL (12.0-15.0); MCH 31.4 pg (26.0-34.0); MCHC 34.5 g/dL (28.0-37.0); MCV 91.2 fL (80.0-100.0); MPV 6.5 fl. (7.2-11.1); RBC 3.32 mil/uL (4.20-5.00); RDW-CV 12.2 % (10.5-14.5); WBC 12.3 thou/uL (4.0-11.0)
[2021-03-21 09:07] LABS: APTT 25.6 Seconds (25.0-31.3); INR 0.9; PROTIME 9.8 Seconds (9.20-11.50)
[2021-03-21] MEDS ORDERED: EFFIENT10 MG PO (09:08)
[2021-03-21 09:13] LABS: ANION GAP 10 mmol/L (7-16); BUN 48 mg/dL (7-18); CHLORIDE 106 mmol/L (98-107); CO2 24 mmol/L (21-32); CREATININE 1.9 mg/dL (0.6-1.3); GLUCOSE 107 mg/dL (70-99); POTASSIUM 4.9 mmol/L (3.5-5.1); SODIUM 140 mmol/L (136-145)
[2021-03-21 09:18] LABS: ALBUMIN 3.3 g/dL (3.4-5.0); ALKALINE PHOSPHATASE 163 U/L (46-116); CHOLESTEROL 197 mg/dL (<200); HDL CHOLESTEROL 49 mg/dL (>40); LDL CHOLESTEROL 103 mg/dL (<100); SGOT 19 U/L (15-37); SGPT 20 U/L (30-65); TOTAL BILIRUBIN 0.2 mg/dL (<0.1-1.0); TOTAL PROTEIN 7.7 g/dL (6.4-8.2); TRIGLYCERIDE 225 mg/dL (<150); VLDL 45 mg/dL (<40)
[2021-03-21 09:19] LABS: SERUM ASSESSMENT Clear
--- NOTE | 2021-03-21 11:14 | EKG ---
[place] [address] ELECTROCARDIOGRAM REPORT Name: CASTRO CLEANING Wilfredo Room: [address]#: [id number] Admission: 03/21/21 Attend Phys: Lidia Loza Discharge: Date of : 51 Date of Service: 03/21/21 0856 Report #: [id number] THIS REPORT FOR: //name// [facility] Test Date: 2021-03-21 Test Time: 08:56:14 Pat Name: CASTRO CLEANING Department: Room: [facility] Gender: F Audio Video Mechanic: ARLYN : 1955 Requested By: Santosh Valdez Order Number: [id number] Reading MD: Bryan Jay Measurements Intervals [place] Rate: 56 P: 48 [place]: 167 QRS: 31 QRSD: 94 T: 78 QT: 455 QTc: 440 Interpretive Statements Sinus rhythm Compared to ECG 03/09/2021 08:43:43 T-wave abnormality no longer present Possible ischemia no longer present Electronically Signed On 03-21-2021 11:14:43 CDT by Bryan Jay [email or web address] <ELECTRONICALLY SIGNED> By: Bryan Jay MD, [facility] 03/21/21 1114 0856 0856 Bryan Jay MD, [facility] /EPI
--- OUTSIDE RECORDS SUMMARY | 2021-03-21 12:38 | XMS REPORT | Summary of Care ---
Demographics + + + | Address | [address] | | | [place] [address] | + + + | Home Phone | | + + + | Preferred Language | Unknown | + + + | Marital Status | Unknown | + + + | Mandaen Affiliation | Unknown | + + + | Race | Unknown | + + + | Ethnic Group | Unknown | + + + Author + + + | Author | [facility] | + + + | Organization | [facility] | + + + | Address | Unknown | + + + | Phone | Unavailable | + + + Support + + +---------+ + | Name | Relationship | Address | Phone | + + +---------+ + | Osmin Edge | ECON | Unknown | | + + +---------+ + Care Team Providers + +------+ + | Care Tea Plantation Worker Name | Role | Phone | + +------+ + | Chandler Patterson | PCP | | + +------+ + Encounter Details +------+---------+ + + + | Date | Type | Department | Care Team | Description | +------+---------+ + + + | 03/01 | Letter | [facility] | Bryan Jay, | | | 11/19 | (Out) | Martin Saleh | [address] | | | [address] | | [place] [address] | [address] | | | | | [address] | [place], | | | | | [address] | [place] [address] | | | | | [place] [address] | [phone] | | | | | [phone] | [phone] | | | | | | (Fax) | | +------+---------+ + + + Allergies No Known Active Allergiesdocumented as of this encounter (statuses as of 03/21/2021) Medications + + +---------+--------+-----+-----+------+ | Medication | Sig | Dispens | Refill | Sta | End | Stat | | | | ed | s | rt | | us | | | | | | Pascual | Pascual | | | | | | | e | e | | + + +---------+--------+-----+-----+------+ | metoprolol | Take 100 mg by | | 0 | | | Acti | | tartrate | mouth 2 (two) | | | | | ve | | (LOPRESSOR) 100 | times a day | | | | | | | MG tablet | | | | | | | + + +---------+--------+-----+-----+------+ | aspirin EC 81 | Take 81 mg by | | 0 | | | Acti | | MG tablet | mouth daily | | | | | ve | + + +---------+--------+-----+-----+------+ | | Take 1 tablet by | | 0 | | | Acti | | HYDROcodone-acet | mouth every 6 | | | | | ve | | aminophen | (six) hours as | | | | | | | (NORCO) 10-325 | needed for | | | | | | | MG per tablet | moderate pain | | | | | | | | (4-6) | | | | | | + + +---------+--------+-----+-----+------+ | nitroglycerin | Place 0.4 mg | | 0 | | | Acti | | (NITROSTAT) 0.4 | under the tongue | | | | | ve | | MG SL tablet | every 5 (five) | | | | | | | | minutes as | | | | | | | | needed for chest | | | | | | | | pain | | | | | | + + +---------+--------+-----+-----+------+ | benazepril | Take 1 tablet | 30 | 11 | 05/ | 05/ | Acti | | (LOTENSIN) 10 MG | (10 mg total) by | tablet | | 21/ | 21/ | ve | | tablet | mouth daily | | | 202 | 202 | | | | | | | 1 | 2 | | + + +---------+--------+-----+-----+------+ | isosorbide | TAKE 1 TABLET(30 | 90 | 3 | 05/ | | Acti | | mononitrate ER | MG) BY MOUTH | tablet | | 21/ | | ve | | (IMDUR) 30 MG 24 | DAILY | | | 202 | | | | hr tablet | | | | 1 | | | + + +---------+--------+-----+-----+------+ | prasugrel | Take 10 mg by | | 0 | | | Acti | | (EFFIENT) 10 MG | mouth daily | | | | | ve | | tablet | | | | | | | + + +---------+--------+-----+-----+------+ documented as of this encounter (statuses as of 03/21/2021) Active Problems + + + | Problem | Noted Date | + + + | Chest pain | 02/16/2021 | + + + | CAD (coronary artery disease) | 02/16/2021 | + + + | Old [place] (myocardial infarction) | 02/16/2021 | + + + documented as of this encounter (statuses as of 03/21/2021) Social History + +-------+---------+--------+------+ | Tobacco Use | Types | Packs/D | Years | Date | | | | ay | Used | | + +-------+---------+--------+------+ | Current Every | | | | | | Day Smoker | | | | | + +-------+---------+--------+------+ + +---+---+---+ | Smokeless | | | | | Tobacco: Never | | | | | Used | | | | + +---+---+---+ + + + | Sex Assigned at | Date Recorded | | | | + + + | Not on file | | + + + documented as of this encounter Last Filed Vital Signs Not on filedocumented in this encounter Plan of Treatment +------+---------+ + + + | Date | Type | Specialty | Care Team | Description | +------+---------+ + + + | | Office | Cardiology | Rudy, | | | 06/19 | Visit | | [facility] | | | [address] | | | [address] | | | | | | [address] | | | | | | [place] | | | | | | [address] | | | | | | [phone] | | | | | | [phone] | | | | | | (Fax) | | +------+---------+ + + + + +---------+-------+ + | Health | Due | Last | Comments | | Maintenance | Date | Done | | + +---------+-------+ + | COLONOSCOPY | | | | | | 954 | | | + +---------+-------+ + | MAMMOGRAM | | | | | | 954 | | | + +---------+-------+ + | COVID-19 VACCINE | | | | | | 972 | | | + +---------+-------+ + | Pneumococcal | | | | | Vaccine: 65+ | 019 | | | | years ( - | | | | | PPSV23) | | | | + +---------+-------+ + | INFLUENZA | | | | | VACCINE | 021 | | | + +---------+-------+ + documented as of this encounter Results Not on filedocumented in this encounter Insurance + +------+ +------+-------+---------+------+ | Payer | Bene | Subscrib | Effe | Phone | Address | Type | | | fit | er ID | ctiv | | | | | | Plan | | e | | | | | | / | | Date | | | | | | Grou | | s | | | | | | p | | | | | | + +------+ +------+-------+---------+------+ | UNITED | AARP | [id number] | 09/30/ | | | | | HEALTHCARE | | 3 | 2021 | | | | | | MEDI | | -Pre | | | | | | CARE | | sent | | | | | | | | | | | | | | COMP | | | | | | | | LETE | | | | | | + +------+ +------+-------+---------+------+ documented as of this encounter"
--- NOTE | 2021-03-21 13:32 | CARD ---
[address] [address] CARDIAC CATH REPORT Name: CASTRO CLEANING Room: [address] Suzie M.RMisty#: [id number] Admission: 03/21/21 Attend Phys: Bryan Jay MD, Discharge: Date of : 51 Report #: [id number] THIS REPORT FOR: cc: Chandler Patterson MD, Bruce D. MD Holkins,Bryan Deutsch MD [facility] ~ APPROVED REPORT Study performed: 03/21/2021 09:12:59 Patient Details Patient Status: Out-Patient Room #: The patient is a 65 year-old female Event Personnel Bryan Jay Barbering Teacher, Tiffany Jerez RN Systematic Theology Professor, Catalino Fish Scrub, Rosa Noble RTR Monitor Procedures Performed Art Access - R femoral artery, Left Heart Cath w/or w/o Coronaries LHC , MATHIEU Place w/wo Plasty Single RCA , Hemostasis w/ Angioseal Indication Unstable angina Risk Factors Hypercholesterolemia, Hypertension Previous Procedures/Diagnoses Previous PCI Admission/Lab Medications/Medications given during procedure Angiomax IV 11.5 ml, Angiomax Drip IV 15.46 ml per hr, Angiomax IV 3 ml, Effient PO 30 mg, Aspirin PO 81 mg Procedure Narrative The patient was brought electively to the Cardiac Catheterization Laboratory and was prepped and draped in a sterile manner. The right femoral was infiltrated with 2% Lidocaine subcutaneous anesthesia. IV conscious sedation was used throughout procedure with appropriate monitoring and was performed in the presence of a registered nurse who was an independent trained observer [place] [address] CARDIAC CATH REPORT Name: CASTRO CLEANING Room: [address] Suzie Lehman#: [id number] Admission: 03/21/21 Attend Phys: Bryan Jay MD, Discharge: Date of : 51 Report #: [id number] performing the procedure. A 6fr Ultimum sheath was inserted into the right femoral artery. Coronary angiography was performed using coronary diagnostic catheters. The right coronary system was accessed and visualized with a 6F JR4 Guide catheter. The left coronary system was accessed and visualized with a 6F JL4 catheter. The left ventricle was accessed and visualized with a 6F Pigtail catheter. Left ventricular/Aortic Valve gradient assessed via catheter pullback. Pre-demployment femoral angiogram was performed . Closure device was deployed with a 6 Fr Angioseal STS. The patient tolerated the procedure well and there were no complications associated with the procedure. There was no hematoma. Intraoperative Conscious Sedation Sedation start time: 09:34 Case end Time: 10:26 Fentanyl 50 mcg Versed 4 mg Fluoro Time: 11.1 minutes Dose: DAP 83658 cGycm2 925 mGy Contrast Type and Amount: Visipaque 85 ml Coronary Angiography The patient's coronary anatomy is right dominant. Diagnostic Cath Left Main 0% narrowing LAD Widely patent proximalmid LAD stent with 10% narrowing Diagonal 1 30% ostial first diagonal narrowing Circumflex 40% ostial circumflex narrowing Right Coronary 90% clefted proximal stenosis with 90% mid vessel in-stent restenosis and 40% distal right coronary narrowing Left Ventriculography Left Ventriculography was not performed. Hemodynamics The aortic pressure is 171/79 mmHg with a mean of 116 mmHg. The left ventricular pressure is 170/3 mmHg with a mean of mmHg. The left ventricular end diastolic pressure is 16 mmHg. PCI Technique Lesion Anticoagulation was achieved with Angiomax. Patient was preloaded with Angiomax IV 11.5 ml. Percutaneous coronary intervention was performed on the proximal right coronary artery. The lesion stenosis prior to intervention was 90% with ASUNCION 3 flow. A 6F JR 4.0 [place] [address] CARDIAC CATH REPORT Name: CASTRO CLEANING Wilfredo Room: [address]#: [id number] Admission: 03/21/21 Attend Phys: Bryan Jay MD, Discharge: Date of : 51 Report #: [id number] Catheter was used to engage the right ostium. A BMW 190cm Interventional Guidewire was used to cross the lesion. BALLOON DILATION A Balloon catheter NC Trek RX 2.5 X 12 was inserted and inflated up to 20.00atm for 13seconds. Additional Inflation: 22.00atm for 11seconds. Additional Inflation: 24.00atm for 10seconds. A Balloon catheter NC Trek 2.75 x 12 was inserted and inflated up to 18 elvia for 9 seconds; 18 elvia for 8 seconds; and 20 elvia for 10 seconds. STENT DEPLOYMENT A drug-eluting stent [place] RX stent [id number] was inserted and inflated up to 17.00atm for 13seconds. Additional Inflation: 18.00atm for 10seconds. POST STENT DEPLOYMENT BALLOON DILATION A Balloon catheter NC Trek RX 3.0 X 12 was inserted and inflated up to 18.00atm for 8seconds. Additional Inflation: 20.00atm for 8seconds. Additional Inflation: 20.00atm for 5seconds. Final angiography reveals 10 % stenosis with ASUNCION 3 flow. COMMENTS The PCI of the proximalmid right coronary artery was technically complex by virtue of severe calcification throughout the vessel with a healed ulcerated plaque in the proximal portion of the right coronary artery. This required significant lesion preparation prior to stent deployment. Conclusion 1. Significant multivessel coronary artery disease characterized by the following: A 0% left main coronary artery narrowing B widely patent proximalmid LAD stent with 10% narrowing and 30% ostial first diagonal narrowing C 40% ostial circumflex narrowing D large dominant right coronary artery with 90% clefted calcified proximal stenosis and 80% heavily calcified mid vessel [place] [address] CARDIAC CATH REPORT Name: CASTRO CLEANING Room: [address] Suzie Lehman#: [id number] Admission: 03/21/21 Attend Phys: Bryan Jay MD, Discharge: Date of : 51 Report #: [id number] 2. Moderate systemic systolic hypertension with mild elevation of left ventricular end-diastolic pressure at rest 3. Successful PCI with deployment of drug-eluting stent spanning the 90% clefted proximal and 80% heavily calcified mid right coronary stenoses with 10% residual narrowing and ASUNCION-3 flow to the distal vessel Recommendations Cardiac Risk Reduction Program Aggressive Medical Therapy Medications Administered Aspirin (any) Prasugrel Diagnostic Cath Approved by: Bryan Jay MD Date/Time: 03/21/2021 13:29:15 <ELECTRONICALLY SIGNED> By: Bryan Jay MD, [facility] 03/21/211330 30 30Bryan Jay MD, FAC /INF
--- NOTE | 2021-03-21 15:48 | EKG ---
[place] [address] ELECTROCARDIOGRAM REPORT Name: CASTRO CLEANING Wilfredo [address] [id number] Admission: 03/21/21 Attend Phys: Lidia Loza Discharge: Date of : 51 Date of Service: 03/21/21 1155 Report #: [id number] THIS REPORT FOR: //name// [facility] Test Date: 2021-03-21 Test Time: 11:55:21 Pat Name: CASTRO CLEANING Department: Room: [facility] Gender: F Concrete Boom Pump Operator: ARLYN : 1955 Requested By: Bryan Jya Order Number: [id number] Yosvany MD: Bryan Jay Measurements Intervals [place] Rate: 67 P: 81 NM: 181 QRS: 37 QRSD: 95 T: 72 QT: 440 QTc: 465 Interpretive Statements Sinus rhythm Consider left atrial enlargemen Compared to ECG 03/21/2021 08:56:14 No significant interval change Electronically Signed On 03-21-2021 15:48:32 CDT by Bryan Jay [email or web address] <ELECTRONICALLY SIGNED> By: Bryan Jay MD, [facility] 03/21/21 1548 1155 1155 Bryan Jay MD, [facility] /EPI
[2021-03-22 01:05] VITALS: BP 142/65
[2021-03-22 04:29] VITALS: BP 165/68
[2021-03-22 05:07] LABS: HEMATOCRIT 27.8 % (37.0-47.0); HEMOGLOBIN 9.6 gm/dL (12.0-15.0); MCH 31.4 pg (26.0-34.0); MCHC 34.7 g/dL (28.0-37.0); MCV 90.6 fL (80.0-100.0); MPV 6.5 fl. (7.2-11.1); RBC 3.06 mil/uL (4.20-5.00); RDW-CV 12.9 % (10.5-14.5); WBC 11.1 thou/uL (4.0-11.0)
[2021-03-22 05:18] LABS: ALBUMIN 2.8 g/dL (3.4-5.0); CALCIUM 8.7 mg/dL (8.5-10.1); CREATININE 1.6 mg/dL (0.6-1.3); POTASSIUM 4.6 mmol/L (3.5-5.1); TOTAL BILIRUBIN 0.3 mg/dL (<0.1-1.0); TOTAL PROTEIN 6.8 g/dL (6.4-8.2); TROPONIN-I LEVEL 0.39 ng/mL (<0.06)
--- NOTE | 2021-03-22 06:42 | NUR ---
RECEIVED REPORT AND ASSUMED CARE AT 1900. VSS. CARDIAC MONITORING IN PLACE. PT UP SBA, ON RA. DENIES COMPLAINTS OF PAIN. DISCUSSED PLAN OF CARE, VERBALIZED UNDERSTANDING. R GROIN SITE MONITORED THROUGH SHIFT. NO S/S BLEEDING, NO HEMATOMA NO ACUTE CHANGES ON THIS SHIFT. ROUNDING COMPLLETED AND ALL NEEDS MET.
[2021-03-22 08:15] VITALS: BP 152/73
[2021-03-22] MEDS ORDERED: ATORVASTATIN CA20 MG PO (08:34)
[2021-03-22 11:11] VITALS: BP 149/86
[2021-03-22 11:37] VITALS: BP 149/86
--- NOTE | 2021-03-22 12:15 | NUR ---
Reviewed discharge teaching with patient; verbalized understanding. 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 Discharged from unit per WC.
--- NOTE | 2021-03-22 13:57 | EKG ---
[place] [address] ELECTROCARDIOGRAM REPORT Name: CASTRO CLEANING Room: [address]#: [id number] Admission: 03/21/21 Attend Phys: Lidia Loza Discharge: 03/22/21 Date of : 51 Date of Service: 03/22/21823 Report #: [id number] THIS REPORT FOR: //name// [facility] Test Date: 2021-03-22 Test Time: 08:24:58 Pat Name: CASTRO CLEANING Department: Room: [facility] Gender: F Hearing Specialist: ARLYN : 1955 Requested By: Bryan Jay Order Number: [id number] Yosvany MD: Bryan Jay Measurements Intervals [place] Rate: 75 P: 78 PA: 168 QRS: 43 QRSD: 93 T: 65 QT: 421 QTc: 471 Interpretive Statements Sinus rhythm Compared to ECG 03/21/2021 11:55:21 No significant changes Electronically Signed On 03-22-2021 13:57:06 CDT by Bryan Jay [email or web address] <ELECTRONICALLY SIGNED> By: Bryan Jay MD, [facility] 03/22/21 1357 3 0824 Bryan Jay MD, [facility] /EPI
--- NOTE | 2021-03-23 09:55 | D ---
[address] [address] DISCHARGE SUMMARY Name: CASTRO CLEANING Room: [address] Suzie Lehman#: [id number] Admission: 03/21/21 Attend Phys: Bryan Jay MD, Discharge: 03/22/21 Date of : 51 Report #: [id number] THIS REPORT FOR: cc: Chandler Patterson MD, Bruce D. MD Holkins, John M. MD [facility] ~ DOC #: [id number] cc: JAKE Thomas-C Bryan Jay MD [facility] DATE OF DISCHARGE: 03/22/2021 LOCATION: The patient is discharged from [facility]. FINAL DISCHARGE DIAGNOSES: 1. Unstable angina. 2. Coronary artery disease. 3. Recently positive nuclear stress test. 4. Hypertension. 5. Hyperlipidemia. 6. Chronic renal insufficiency. 7. Tobacco abuse. PROCEDURES: On 03/21/2021 -- left heart catheterization, selective coronary arteriography, and percutaneous coronary intervention with deployment of drug-eluting stent in the proximal-mid right coronary artery. HOSPITAL COURSE: The patient is a pleasant 65-year-old female with a number of risk factors for coronary disease including hypertension, hyperlipidemia, renal insufficiency, and tobacco use. She presented with unstable angina and also had an abnormal nuclear stress test prior to the catheterization 2 weeks ago. At that time, she was defined as having severe proximal-mid LAD and proximal-mid right coronary artery stenosis. I performed PCI of the LAD with atherectomy and stenting of the proximal-mid LAD with 10% residual narrowing and ASUNCION 3 flow to the distal vessel. By virtue of dye constraints in the context of renal insufficiency, I elected to stage the right coronary intervention. She was readmitted on 03/21/2021 with a re-catheterization demonstrating widely patent proximal-mid LAD stents and persistent cleft at 90% proximal and 80% mid right coronary in-stent restenosis. I performed an angioplasty with deployment of one 2.8 x 34 mm Mason drug-eluting stent in the proximal-mid right coronary artery with a 10% residual narrowing and ASUNCION 3 flow to the distal vessel. The patient did well post-procedurally and there was good hemostasis at the right [place] [address] DISCHARGE SUMMARY Name: CASTRO CLEANING Room: [address] Suzie Lehman#: [id number] Admission: 03/21/21 Attend Phys: Bryan Jay MD, Discharge: 03/22/21 Date of : 51 Report #: [id number] Troponin naren inconsequentially to 0.39. LABORATORY DATA: On 03/22 revealed a sodium of 141, potassium 4.6, BUN 38, creatinine 1.6 (down from 1.9 preprocedurally), glucose 100, hemoglobin 9.6, white blood cell count 11,100 with hematocrit 27.8 and platelets 346,000. Lipid data revealed a cholesterol of 197, triglycerides of 225, HDL of 49, and LDL of 103 mg%. DISCHARGE MEDICATIONS: The patient was discharged home on the following medications: Newly started statin, atorvastatin 20 mg at bedtime; hydrocodone/acetaminophen 10/325 one tablet every 6 hours p.r.n. pain; aspirin 81 mg daily; metoprolol tartrate 100 mg b.i.d.; p.r.n. sublingual nitroglycerin; benazepril 10 mg daily; and prasugrel 10 mg daily with 30 mg periprocedural dose having been given. The patient is scheduled to return to see my nurse practitioner, Jenna Grant, on 04/07/2021 at 1300 hours. Therefore, the patient is discharged home in stable condition on the aforementioned medications with followup as described above. Bryan Jay MD [facility]/JORDYN <ELECTRONICALLY SIGNED> By: Bryan Jay MD, [facility] 03/23/21 0955 0827 0956Bryan Jay MD, [facility] /
--- NOTE | 2021-03-24 11:04 | H ---
[place] [address] HISTORY AND PHYSICAL Name: CASTRO CLEANING Room: [address] Suzie Lehman#: [id number] Admission: 03/21/21 Attend Phys: Bryan Jay MD, Discharge: 03/22/21 Date of : 51 Report #: [id number] THIS REPORT FOR: cc: Chandler Patterson MD, Bruce D. MD Holkins, John M. MD [facility] ~ DOC #: [id number] Bryan Jay MD [facility] ADMIT DATE: 03/21/2021 The patient is to be admitted on 03/21/2021 for heart catheterization. HISTORY OF PRESENT ILLNESS: The patient is a very pleasant 65-year-old female who was previously evaluated for chest pain. In that context, nuclear stress test was performed which revealed inducible ischemia. Approximately 2 weeks ago, I performed cardiac catheterization, which revealed sequential proximal and mid 90% stenosis with 90% proximal right coronary stenosis with 75% in-stent restenosis of the mid right coronary artery. The patient has renal insufficiency with a creatinine at that time of 2.4 and a BUN in the mid 50s. I performed PCI on the proximal and mid LAD with atherectomy, and stenting of that vessel with 10% residual narrowing and ASUNCION 3 flow to the distal vessel. However, there were concerns about contrast usage in the context of renal insufficiency, I elected to stage the procedure with a planned intervention of the right coronary artery subsequently. The patient has done well since then, and is treated with dual antiplatelet therapy, benazepril/hydrochlorothiazide, hydrocodone as needed for back pain, Toprol 100 mg b.i.d., p.r.n. nitroglycerin, and Imdur 30 mg daily. FAMILY HISTORY: Remarkable for hypertension and renal insufficiency. SOCIAL HISTORY: She is a smoker. PHYSICAL EXAMINATION: GENERAL: Demonstrates an under stress middle-aged female. VITAL SIGNS: Blood pressure is 155/75, pulse rate is 74, respirations are 18 per minute. NECK: Jugular venous pressure is normal. CHEST: Clear. CARDIOVASCULAR: Reveals normal first and second heart sounds with a soft systolic murmur. ABDOMEN: Mildly obese. EXTREMITIES: Without edema with intact pulses. There is good healing at the femoral [place] [address] HISTORY AND PHYSICAL Name: CASTRO CLEANING Room: [address] Suzie Lehman#: [id number] Admission: 03/21/21 Attend Phys: Bryan Jay MD, Discharge: 03/22/21 Date of : 51 Report #: [id number] IMPRESSION: 1. Severe multivessel coronary artery disease affecting the LAD and right coronary artery. 2. Status post PCI to the proximal and mid LAD 2 weeks ago. 3. Hypertension. 4. Tobacco habituation. 5. Renal insufficiency. RECOMMENDATIONS: Given the aforementioned clinical scenario with recently identified high-grade LAD and right coronary stenosis status post PCI to the LAD 2 weeks ago, I would recommend proceeding with recatheterization on 03/21/2021 with definition of the adequacy of the result in the LAD and then plan to proceed with PCI to the cleft at 90% right coronary stenosis which was defined at the prior catheterization. Procedure and risks have been discussed with the patient, we will plan to proceed with cardiac catheterization on 03/21/2021. Brayn Jay MD [facility]/[place] <ELECTRONICALLY SIGNED> By: Bryan Jay MD, [facility] 03/24/21 1104 1108 [id number] Jay MD, [facility] /nt
== END 2021-03-22 12:10 | disposition home or self-care (01) ==
LOC: M.CL 08:23 → M.TBA-CV 10:13 → M.2W 10:13 → M.TBA-CV 10:13 → M.2W 11:00
PROVIDERS: Internal Medicine Cardiovascular Disease; ADMIT Internal Medicine; ATTEND Internal Medicine
DX: I25.110 Atherosclerotic heart disease of native coronary artery with unstable angina pectoris (principal); I12.9 Hypertensive chronic kidney disease with stage 1 through stage 4 chronic kidney disease, or unspecified chronic kidney disease; N18.9 Chronic kidney disease, unspecified; E78.5 Hyperlipidemia, unspecified; F17.200 Nicotine dependence, unspecified, uncomplicated

== ENCOUNTER 2021-07-24 15:07 | Inpatient (IN) | payer OTHER ==
[~2021-07-24] VITALS: Ht 165.1 cm; Wt 68.9 kg
[2021-07-24 15:10] VITALS: BP 190/106
[2021-07-24] MEDS ORDERED: BENAZEPRIL HCL40 MG PO (15:13)
--- NOTE | 2021-07-24 15:48 | EKG ---
[place] [address] ELECTROCARDIOGRAM REPORT Name: CASTRO CLEANING Room: [facility]#: [id number] Admission: 07/24/21 Attend Phys: Discharge: Date of : 51 Date of Service: 07/24/21 1544 Report #: [id number] THIS REPORT FOR: //name// [facility] ED Test Date: 2021-07-24 Test Time: 15:44:39 Pat Name: CASTRO CLEANING Department: Room: Gender: F Medical Staff Physician: : 1955 Requested By: Johanne Locke Order Number: [id number] MD: Joshua Her Measurements Intervals [place] Rate: 76 P: 83 GA: 154 QRS: 38 QRSD: 94 T: 143 QT: 387 QTc: 436 Interpretive Statements Sinus rhythm Probable LVH with secondary repol abnrm Compared to ECG 03/22/2021 08:24:58 LEFT VENTRICULAR HYPERTROPHY with repolarization noted Electronically Signed On 07-24-2021 15:47:52 CDT by Joshua Her [email or web address] <ELECTRONICALLY SIGNED> By: Joshua Her MD, [facility] 07/24/21 1547 1544 1544 Joshua Her MD, [facility] /EPI
[2021-07-24 16:08] LABS: CALCIUM 9.6 mg/dL (8.5-10.1); CREATININE 3.5 mg/dL (0.6-1.3); POTASSIUM 5.1 mmol/L (3.5-5.1)
[2021-07-24 16:11] LABS: ABSOLUTE LYMPHOCYTES 1.4 thou/uL (0.8-5.3); ABSOLUTE MONOCYTES 0.9 thou/uL (0.0-1.2); HEMOGLOBIN 12.2 gm/dL (12.0-15.0); MPV 7.2 fl. (7.2-11.1)
[2021-07-24 16:13] LABS: ABSOLUTE BASOPHILS 0.2 thou/uL (0.0-0.2); ABSOLUTE NEUTROPHILS 13.2 thou/uL (1.6-8.1); ALBUMIN 3.7 g/dL (3.4-5.0); BASOPHILS 1.3 %; HEMATOCRIT 36.4 % (37.0-47.0); LYMPHOCYTES 8.8 %; MCH 30.5 pg (26.0-34.0); MCHC 33.6 g/dL (28.0-37.0); MCV 90.8 fL (80.0-100.0); NUCLEATED RBCS 0 /100WBC; PLATELET COUNT* 442 thou/uL (150-400); POLYS 83.9 %; RDW-CV 13.4 % (10.5-14.5); TOTAL BILIRUBIN 0.4 mg/dL (<0.1-1.0); TOTAL PROTEIN 8.7 g/dL (6.4-8.2); WBC 15.7 thou/uL (4.0-11.0)
[2021-07-24 18:39] LABS: URINE BILIRUBIN NEGATIVE (Negative); URINE BLOOD 1+ (Negative); URINE CLARITY CLEAR; URINE COLOR YELLOW; URINE GLUCOSE-RANDOM NEGATIVE (Negative); URINE KETONES NEGATIVE (Negative); URINE LEUKOCYTES-REFLEX NEGATIVE (Negative); URINE NITRITE-REFLEX NEGATIVE (Negative); URINE PROTEIN 3+ (Negative); URINE SPECIFIC GRAVITY >= 1.030 (1.005-1.030); URINE UROBILINOGEN 0.2 E.U./dl (0.2-1.0)
[2021-07-24 18:48] LABS: SQUAMOUS >10 Many /LPF (0-3); URINE WBC-REFLEX 0-5 Rare /HPF (0-5)
[2021-07-24 18:49] LABS: BACTERIA-REFLEX 1-9 Few /HPF (None Seen); CRYSTALS None Seen /LPF (None Seen); HYALINE CASTS 0-3 Few /LPF (None Seen); MUCUS 0-3 Light strn/LPF (None Seen); URINE RBC 0-2 Rare /HPF (0-2)
[2021-07-24] MEDS ORDERED: LIPITOR 20 MG T20 M1 PO (18:49)
[2021-07-24 21:52] VITALS: BP 182/93
[2021-07-25] VITALS (8 sets, daily range): BP systolic 146–193; BP diastolic 67–103
[2021-07-25 04:18] LABS: ALBUMIN 3.1 g/dL (3.4-5.0); CALCIUM 8.6 mg/dL (8.5-10.1); CREATININE 2.9 mg/dL (0.6-1.3); POTASSIUM 4.5 mmol/L (3.5-5.1); TOTAL BILIRUBIN 0.4 mg/dL (<0.1-1.0); TOTAL PROTEIN 7.1 g/dL (6.4-8.2)
[2021-07-25 04:36] LABS: HEMATOCRIT 32.3 % (37.0-47.0); HEMOGLOBIN 10.6 gm/dL (12.0-15.0); MCH 30.1 pg (26.0-34.0); MCHC 32.6 g/dL (28.0-37.0); MCV 92.3 fL (80.0-100.0); MPV 7.2 fl. (7.2-11.1); RBC 3.5 mil/uL (4.20-5.00); RDW-CV 13.2 % (10.5-14.5); WBC 11.1 thou/uL (4.0-11.0)
[2021-07-26 05:16] LABS: HEMATOCRIT 37.7 % (37.0-47.0); HEMOGLOBIN 11.6 gm/dL (12.0-15.0); MCH 30.2 pg (26.0-34.0); MCHC 30.8 g/dL (28.0-37.0); MPV 7.4 fl. (7.2-11.1); RBC 3.85 mil/uL (4.20-5.00); RDW-CV 13.8 % (10.5-14.5); WBC 11.5 thou/uL (4.0-11.0)
[2021-07-26 05:32] LABS: CALCIUM 9.1 mg/dL (8.5-10.1); CREATININE 2.3 mg/dL (0.6-1.3); MCV 98.1 fL (80.0-100.0); POTASSIUM 4.4 mmol/L (3.5-5.1)
--- NOTE | 2021-07-26 15:41 | CON ---
[address] [address] CONSULTATION Name: [facility] Room: [address] IN M.R.#: [id number] Admission: 07/24/21 Attend Phys: Jodie Plasencia MD Discharge: Date of : 51 Report #: [id number] THIS REPORT FOR: cc: Chandler Patterson MD, Bruce D. MD Arakelov, Alexandr V. MD ~ DATE OF CONSULTATION: 07/25/2021 REQUESTING PHYSICIAN: Dr. Tony. REASON FOR CONSULTATION: Acute kidney injury. HISTORY OF PRESENT ILLNESS: The patient is a 65-year-old female who was admitted to the hospital with chief complaints of nausea, vomiting, diarrhea for 3 days prior to admission. She was unable to keep anything down. Her creatinine on admission was 3.5. She is getting IV fluids and creatinine is somewhat better down to 2.9, baseline creatinine is around 1.6. MEDICAL HISTORY: Significant for hypertension and chronic kidney disease stage 3. SOCIAL HISTORY: No tobacco or alcohol abuse. FAMILY HISTORY: Positive for hypertension. REVIEW OF SYSTEMS: She states that her nausea, vomiting, diarrhea resolved and that she wants to go home today. No chest pain, no fever, no chills, no abdominal pain. PHYSICAL EXAMINATION: GENERAL: Awake, alert, oriented. VITAL SIGNS: Blood pressure 151/72, heart rate 74, afebrile. HEENT: Pupils are round. NECK: Supple. LUNGS: Clear. CARDIOVASCULAR: Regular rate. ABDOMEN: Soft. EXTREMITIES: Lower extremities, no edema. ASSESSMENT: 1. Acute kidney injury due to volume depletion due to nausea, vomiting and diarrhea. 2. Chronic kidney disease stage 3. 3. Hypertension. [address] [address] CONSULTATION Name: BLACKCASTRO ODALIS Room: [address] IN .R.#: [id number] Admission: 07/24/21 Attend Phys: Jodie Plasencia MD Discharge: Date of : 51 Report #: [id number] PLAN: 1. Continue IV fluids. 2. Stop Lotensin. 3. Follow labs in the morning. Hopefully, she can go home tomorrow. <ELECTRONICALLY SIGNED> By: Francisco Jordan MD 07/26/21 [id number] [id number] Jordan MD /nt
[2021-07-26 15:50] VITALS: BP 187/94
[2021-07-26 20:40] VITALS: BP 174/81
[2021-07-26 23:06] LABS: INFLUENZA A ANTIGEN Negative (Negative); INFLUENZA B ANTIGEN Negative (Negative)
[2021-07-26 23:57] VITALS: BP 124/51
[2021-07-27 10:55] LABS: CALCIUM 8.6 mg/dL (8.5-10.1); CREATININE 1.8 mg/dL (0.6-1.3)
[2021-07-27 12:21] VITALS: BP 184/100
[2021-07-27 14:27] VITALS: BP 184/100
== END 2021-07-27 13:40 | disposition home or self-care (01) | DRG 391 ==
LOC: M.ERS 15:07 → M.TBA-ER 18:12 → M.3W 18:12
PROVIDERS: Internal Medicine; Nurse Practitioner Family; ADMIT Internal Medicine; ATTEND Internal Medicine
DX: K29.00 Acute gastritis without bleeding (principal); N17.0 Acute kidney failure with tubular necrosis; E87.1 Hypo-osmolality and hyponatremia; A08.4 Viral intestinal infection, unspecified; Z20.822 Contact with and (suspected) exposure to COVID-19; M54.9 Dorsalgia, unspecified; G89.29 Other chronic pain; I25.10 Atherosclerotic heart disease of native coronary artery without angina pectoris; N28.9 Disorder of kidney and ureter, unspecified; I71.4 Abdominal aortic aneurysm, without rupture; N18.30 Chronic kidney disease, stage 3 unspecified; E86.9 Volume depletion, unspecified; I12.9 Hypertensive chronic kidney disease with stage 1 through stage 4 chronic kidney disease, or unspecified chronic kidney disease; N28.1 Cyst of kidney, acquired; D72.829 Elevated white blood cell count, unspecified; Z23 Encounter for immunization; Z90.710 Acquired absence of both cervix and uterus; Z90.49 Acquired absence of other specified parts of digestive tract; I25.2 Old myocardial infarction; Z82.49 Family history of ischemic heart disease and other diseases of the circulatory system